=== PATIENT | male | born 1990 | race Hispanic/Latino ===

== ENCOUNTER 2016-11-21 02:36 | Emergency (ER) | payer OTHER ==
[2016-11-21] MEDS ORDERED: DiphenhydrAMINE 50 mg/ml Inj ONE (02:37)
[2016-11-21 02:47] VITALS: TEMP 98.2; O2SAT 98
[2016-11-21] MEDS ORDERED: DiphenhydrAMINE 50 mg/ml Inj IM STA (02:52)
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
[2016-11-21 03:45] LABS: BASO % 0.3 % (0.0-2.0); EOS % 0.1 % (0.0-4.0); HEMOGLOBIN 14.1 g/dL (12.0-18.0); LYMPH # 2.4 K/uL (1.0-4.3); LYMPH % 20.5 % (20.0-40.0); MEAN CELL VOLUME 81.7 fl (80.0-94.0); MEAN CORPUSCULAR HEMOGLOBIN 28.1 pg (27.0-31.0); MEAN CORPUSCULAR HGB CONC 34.3 g/dL (33.0-37.0); MEAN PLATELET VOLUME 8.3 fl (7.2-11.7); MONO # 0.7 K/uL (0.0-0.8); MONO % 6.1 % (0.0-10.0); NEUT # 8.4 K/uL (1.8-7.0); NRBC % 0.1 % (0.0-0.0); RBC 5.04 Mil/uL (4.40-5.90); RED CELL DISTRIBUTION WIDTH 13.8 % (11.5-14.5); WHITE BLOOD COUNT 11.5 K/uL (4.8-10.8)
[2016-11-21 03:56] LABS: BLOOD UREA NITROGEN 10 mg/dl (9-20); CALCIUM 9.5 mg/dL (8.4-10.2); GFR AFRICAN-AMERICAN > 60; GFR NON-AFRICAN AMERICAN > 60
[2016-11-21 03:57] LABS: SALICYLATE < 1.0 mg/dl
[2016-11-21 03:59] LABS: ACETAMINOPHEN < 10.0 ug/ml (10.0-30.0)
[2016-11-21 05:22] VITALS: BP 131/70; PULSE 70; RESP 15
== END 2016-11-21 05:50 ==
LOC: H.ER 02:36 → MERGE 02:36 → H.ER 05:50
DX: F19.10 Other psychoactive substance abuse, uncomplicated (principal); Z91.19 Patient's noncompliance with other medical treatment and regimen